=== PATIENT | female | born 1955 | race African-American/Black ===

== ENCOUNTER → 2017-10-06 | Outpatient (CLI) | payer MEDICARE, OTHER ==
[~2017-10-06] MED LIST: AMLO2.5T2 PO; FERR-89 PO; IBUP-2343 PO; LEVO100T4 PO; METH10TA PO; NITR0.4T50 SL; OMEP20 PO; VALS160T2 PO; VICOT PO
== END | disposition home or self-care (01) ==
LOC: RADMN 12:51
PROVIDERS: ATTEND Specialist
DX: M48.061 Spinal stenosis, lumbar region without neurogenic claudication (principal); M48.07 Spinal stenosis, lumbosacral region; M51.26 Other intervertebral disc displacement, lumbar region; M48.54XD Collapsed vertebra, not elsewhere classified, thoracic region, subsequent encounter for fracture with routine healing; M48.56XD Collapsed vertebra, not elsewhere classified, lumbar region, subsequent encounter for fracture with routine healing; M19.071 Primary osteoarthritis, right ankle and foot; M25.871 Other specified joint disorders, right ankle and foot; M81.0 Age-related osteoporosis without current pathological fracture; M25.771 Osteophyte, right ankle
CPT/HCPCS: 72131; 73700

== ENCOUNTER 2018-03-25 10:21 | Emergency (ER) | payer MEDICARE, OTHER ==
[~2018-03-25] VITALS: Ht 167.6 cm; Wt 136.4 kg
[2018-03-25] MEDS ORDERED: PERCT10 PO (10:48)
[2018-03-25 11:47] LABS: GLUCOSE,POINT OF CARE 120 MG/DL (70-110)
[2018-03-25 13:10] VITALS: BP 101/63
== END 2018-03-25 13:25 | disposition home or self-care (01) ==
LOC: EMS 10:22
DX: M79.662 Pain in left lower leg (principal); G89.29 Other chronic pain; I10 Essential (primary) hypertension; I25.10 Atherosclerotic heart disease of native coronary artery without angina pectoris; Z88.1 Allergy status to other antibiotic agents
CPT/HCPCS: 82948; 93971; 99285